=== PATIENT | female | born 2000 | race Hispanic/Latino ===

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

== ENCOUNTER 2021-09-28 08:20 | Emergency (ER) | payer BC ==
[~2021-09-28] VITALS: Ht 152.4 cm; Wt 38.1 kg
[2021-09-28] MEDS ORDERED: IBUPROFEN800 MG PO (10:44)
[2021-09-28 11:04] VITALS: BP 123/81
== END 2021-09-28 11:06 | disposition home or self-care (01) ==
LOC: ER 08:31
DX: R07.89 Other chest pain (principal)
CPT/HCPCS: 71046; 93005; 99283

== ENCOUNTER 2021-12-27 11:49 | Emergency (ER) | payer BC ==
[~2021-12-27] VITALS: Ht 152.4 cm; Wt 38.1 kg
[~2021-12-27 11:49] MED LIST: IBUPROFEN800 MG PO
[2021-12-27] MEDS ORDERED: DONNATAL/LIDOCAINE/MAALOX 30 ML SUSP PO STA (11:53)
[2021-12-27] MEDS ORDERED: KETOROLAC TROMETHAMINE 60 MG/2 ML VIAL IM ONE (12:15)
[2021-12-27] MEDS ORDERED: FAMOTIDINE40 MG PO (13:15)
[2021-12-27] MEDS ORDERED: CLARITHROMYCIN500 MG PO (13:15)
[2021-12-27] MEDS ORDERED: METRONIDAZOLE500 MG PO (13:15)
== END 2021-12-27 14:12 | disposition home or self-care (01) ==
LOC: ER 11:55
DX: R07.89 Other chest pain (principal); R10.13 Epigastric pain
CPT/HCPCS: 71046; 81025; 93005; 99284; J1885